=== PATIENT | female | born 1985 | race Caucasian/White ===

== ENCOUNTER → 2017-04-22 | Outpatient (CLI) | payer BC ==
[2017-04-22 09:54] LABS: ESTIMATED AVERAGE GLUCOSE 163 mg/dl; HA1C FLAG Normal (Normal)
== END | disposition home or self-care (01) ==
LOC: C.LAB1850 08:41
PROVIDERS: ATTEND Nurse Practitioner Family
DX: E10.9 Type 1 diabetes mellitus without complications (principal)

== ENCOUNTER → 2017-07-30 | Outpatient (CLI) | payer BC ==
[2017-07-31 06:54] LABS: ESTIMATED AVERAGE GLUCOSE 146 mg/dl; HA1C FLAG Normal (Normal)
== END | disposition home or self-care (01) ==
LOC: C.LAB 17:45
PROVIDERS: ATTEND Nurse Practitioner Family
DX: E10.9 Type 1 diabetes mellitus without complications (principal)

== ENCOUNTER → 2017-10-29 | Outpatient (CLI) | payer OTHER ==
[2017-10-29 13:01] LABS: HEMOGLOBIN A1C 6.2 % (4.5-5.6)
== END | disposition home or self-care (01) ==
LOC: C.LAB1850 10:37
PROVIDERS: ATTEND Nurse Practitioner Family
DX: O24.011 Pre-existing type 1 diabetes mellitus, in pregnancy, first trimester (principal); Z3A.00 Weeks of gestation of pregnancy not specified; E10.9 Type 1 diabetes mellitus without complications

== ENCOUNTER → 2017-11-29 | Outpatient (CLI) | payer OTHER ==
[2017-11-29 12:54] LABS: HEMOGLOBIN A1C 5.6 % (4.5-5.6)
== END | disposition home or self-care (01) ==
LOC: C.LAB1850 11:24
PROVIDERS: ATTEND Nurse Practitioner Family
DX: O24.011 Pre-existing type 1 diabetes mellitus, in pregnancy, first trimester (principal)

== ENCOUNTER → 2017-12-31 | Outpatient (CLI) | payer OTHER ==
[2017-12-31 12:38] LABS: HEMOGLOBIN A1C 5.2 % (4.5-5.6)
== END | disposition home or self-care (01) ==
LOC: C.LAB1850 10:21
PROVIDERS: ATTEND Nurse Practitioner Family
DX: O24.011 Pre-existing type 1 diabetes mellitus, in pregnancy, first trimester (principal); Z3A.00 Weeks of gestation of pregnancy not specified; E10.9 Type 1 diabetes mellitus without complications

== ENCOUNTER → 2018-01-31 | Outpatient (CLI) | payer OTHER ==
[2018-01-31 09:55] LABS: HEMOGLOBIN A1C 5.3 % (4.5-5.6)
== END | disposition home or self-care (01) ==
LOC: C.LAB1850 08:08
PROVIDERS: ATTEND Nurse Practitioner Family
DX: O24.011 Pre-existing type 1 diabetes mellitus, in pregnancy, first trimester (principal); Z3A.00 Weeks of gestation of pregnancy not specified

== ENCOUNTER 2020-07-23 05:04 | Inpatient (IN) ==
[2020-07-23] MEDS ORDERED: OXYTOCIN 30 UNITS/500 ML BAG IV PRN (08:30)
[2020-07-23] MEDS ORDERED: LACTATED RINGER'S 1,000 ML IV PRN (08:30)
[2020-07-23 09:00] LABS: Hemoglobin 9.6 g/dL (12.0-16.0); Mean Corpuscular Hemoglobin 25.5 pg (25-34); Mean Corpuscular Volume 79.6 fL (80-100); Mean Platelet Volume 10.1 fL (7.4-10.4); Platelet Count 368 K/uL (130-400); RDW Coefficient of Variation 15.3 % (11.5-14.5); RDW Standard Deviation 44.2 fL (36.4-46.3); Red Blood Count 3.77 M/uL (4.2-5.4); White Blood Count 10.24 K/uL (4.8-10.8)
[2020-07-23] MEDS ORDERED: DINOPROSTONE 10 MG INSERT PV ONE (09:00)
--- NOTE | 2020-07-23 09:21 | Obstetrical Progress Note ---
Date of Service July 23, 2020 Assessment & Plan Admission and Anticipated Discharge Date Admission Date: July 23, 2020 Subjective Admit Note 34 F P1001 at 39.5 weeks admitted for IOL for diabetes Type 1 with her own insulin pump. Has had good glycemic control with normal A1C. GBS is negative. Covid is negative. FHT Cat 1 with no contractions. Cervix closed/50/- 3/vertex/posterior mod/intact. Cervidil 10 mg placed vaginally. Discussed with patient. Results & Data ([facility]) Vital Signs (Past 12 Hours) Vital Signs Temp Pulse Resp BP 07/23/20 08:02 36.5 C 84 18 132/63 07/23/20 07:52 84 132/63
[2020-07-23] MEDS ORDERED: Nursing to Pharmacy Communication SCH (13:30)
[2020-07-23] MEDS ORDERED: DEXTROSE 50% 50 ML SYRINGE IV PRN (13:45)
[2020-07-23] MEDS ORDERED: INSULIN ASPART 100 UNITS/ML VIAL SC PRN (13:45)
[2020-07-23] MEDS ORDERED: GLUCOSE 40% GEL 15 GM TUBE PO PRN (13:45)
[2020-07-23] MEDS ORDERED: GLUCAGON FOR INJ 1 MG VIAL SQ PRN (13:45)
[2020-07-23] MEDS ORDERED: CARBOHYDRATES FOR HYPOGLYCEMIA PO PRN (13:45)
[2020-07-23] MEDS ORDERED: GLUCOSE 10 TABS/TUBE PO PRN (13:45)
[2020-07-23] MEDS: NovoLOG INSULIN PUMP SCH (18:59)
--- NOTE | 2020-07-23 21:44 | Obstetrical Progress Note ---
Date of Service July 23, 2020 Assessment & Plan Admission and Anticipated Discharge Date Admission Date: July 23, 2020 Physical Exam Genitourinary: Manual OB Exam: + cervical dilation 1 cm, + cervical effacement 50% and + station high OB Exam Monitor Tracing: + external FHT monitor used and + external uterine monitor used Cervidil removed will start PO Cytotec 50 mcg every 4 hours titrated to contractions Results & Data ([facility]) Vital Signs (Past 12 Hours) Vital Signs Temp Pulse Resp BP 07/23/20 19:03 36.7 C 86 18 125/64 07/23/20 15:21 76 126/67 07/23/20 15:20 36.6 C 18 07/23/20 11:19 36.7 C 80 18 126/67
[2020-07-24] MEDS: miSOPROStoL 50 MCG TAB PO SCH ×2 (00:01→06:20)
[2020-07-24] MEDS ORDERED: ePHEDrine sulfate 50 MG/ML AMP ONE (19:48)
[2020-07-24] MEDS ORDERED: fentaNYL citrate 100 MCG/2 ML VIAL ONE (19:49)
[2020-07-24] MEDS ORDERED: BUPIVACAINE 0.25% 30 ML VIAL ONE (19:49)
[2020-07-24] MEDS ORDERED: fentaNYL 2MCG/ML ROPIVACAINE 1.25MG/ML 100 ML BAG EPI ONE (19:50)
[2020-07-24] MEDS: NovoLOG INSULIN PUMP SCH (20:00)
--- NOTE | 2020-07-24 20:04 | Anesthesiology Consultation ---
Date of Service July 24, 2020 Assessment & Plan Chart Review Chart Review: Acceptable Risk for Surgery, Patient NOT seen in Pre Admission Testing and Acceptable Risk for Labor Epidural Consults Requested none ASA ASA3 Proposed Anesthesia Anesthesia Type: Labor Epidural and CSE History Height/Weight Height: 5 ft 5 in Weight: 91.626 kg Allergies Allergy/AdvReac Type Severity Reaction Status Date / Time No Known Drug Allergies Allergy None Verified 07/23/20 07:58 Medications Home Medications Medication Instructions Recorded Confirmed Last Taken blood sugar diagnostic #10 ea 05/12/19 04/01/20 Unknown blood-glucose meter, wireless #1 ea 05/12/19 04/01/20 Unknown blood-glucose meter,continuous #1 ea 05/12/19 04/01/20 Unknown blood-glucose transmitter #1 ea 05/12/19 04/01/20 Unknown cholecalciferol (vitamin D3) 50 2,000 units PO DAILY tab 05/12/19 07/23/20 07/22/20 mcg (2,000 unit) tablet cyanocobalamin (vitamin B-12) 500 500 mcg PO DAILY tab 05/12/19 07/23/20 07/22/20 mcg tablet levothyroxine 75 mcg tablet 75 mcg PO .COMPLEX #90 tab 11/17/19 07/23/20 07/23/20 glucagon (human recombinant) 1 mg 1 mg IM .COMPLEX PRN #1 ea 12/05/19 07/21/20 07/21/20 solution for injection Dexcom G6 Sensor #9 ea NS 02/28/20 04/01/20 Unknown acetone (urine) test #25 ea 04/01/20 04/01/20 Unknown insulin glargine 100 unit/mL (3 160 units SQ DAILY 90 Days #144 ml 04/08/20 07/23/20 07/23/20 mL) subcutaneous pen Novolog U-100 Insulin aspart 100 160 units SQ DAILY #150 ml NS 04/29/20 07/21/20 07/23/20 08:00 unit/mL subcutaneous solution Dexcom G6 Transmitter #1 ea NS 06/04/20 Unknown prenat.vits,cherelle,jqz-ddsh-sdias 1 tab PO DAILY 07/23/20 07/23/20 07/23/20 [ Vitamin] Active Medications Generic Name Dose Route Start Last Admin Trade Name Freq PRN Reason Stop Dose Admin Insulin Aspart 1 ea 07/23/20 16:30 07/23/20 18:59 Novolog Insulin Pump N/A 08/22/20 16:29 Not Given ACHS DAY Protocol Misoprostol 50 mcg 07/24/20 00:00 07/24/20 06:20 Misoprostol 50 Mcg Tab PO 08/23/20 00:00 50 mcg Q4 DAY Administration Past Medical History Medical History Asthma Hasn't used an inhaler in about 5 years. Foot pain H/O Dharmesh thyroiditis Hypothyroid Microalbuminuria Non-proliferative diabetic retinopathy, mild, both eyes Pneumonia Type I diabetes mellitus Diagnosed at age 3. Exercise / Class Metabolic Activity II 4-5 Yardwork/Stairs/Walk up hill Past Family History Family History Father Myelofibrosis Mother Heart valve insufficiency Past Surgical History Surgical History [place] teeth removed Past Anesthesia History No Hx of Anesthesia Complications and No Family Hx of Anesthesia Complications History of PONV No Hx of PONV and No Hx of Motion Sickness Social History Smoking Status: Never smoker Hx Alcohol Use: No Hx Substance Use: No Physical Exam Vital Signs Last Vital Signs Temp 36.3 C L 07/24/20 19:36 Pulse 72 07/24/20 19:33 Resp 22 07/24/20 18:08 BP 135/65 07/24/20 19:33 Testing Laboratory Results 07/23/20 08:40
[2020-07-24] MEDS: ePHEDrine sulfate 50 MG/ML AMP IV PRN ×2 (20:30→20:40)
[2020-07-24] MEDS ORDERED: PROMETHAZINE HCL 25 MG in SODIUM CHLORIDE 0.9% 50 ML IV PRN (20:47)
[2020-07-24] MEDS ORDERED: ONDANSETRON INJ 2 MG/ML 2 ML VIAL IV PRN (20:47)
[2020-07-24] MEDS ORDERED: NALOXONE HCL 0.4 MG/1 ML VIAL/CARP IV PRN (20:47)
[2020-07-24] MEDS ORDERED: NALOXONE HCL 1 MG in SODIUM CHLORIDE 0.9% 1000ML 1,000 ML IV PRN (20:47)
[2020-07-24] MEDS ORDERED: diphenhydrAMINE 50 MG/ML VIAL IV PRN (20:47)
[2020-07-24] MEDS ORDERED: fentaNYL 2MCG/ML ROPIVACAINE 1.25MG/ML 100 ML BAG EPI PRN (20:47)
[2020-07-24] MEDS ORDERED: OXYTOCIN 30 UNITS/500 ML BAG IV PRN ×2 (20:57→23:57)
[2020-07-24] MEDS ORDERED: DIPHTHERIA/TETANUS/PERTUSSIS 0.5 ML SYR/VIAL IM ONE (23:57)
[2020-07-24] MEDS ORDERED: SUPERCREAM 0.870% 15 GM JAR EXT PRN (23:57)
[2020-07-24] MEDS ORDERED: bisacodyL 10 MG SUPP PR PRN (23:57)
[2020-07-24] MEDS ORDERED: ACETAMINOPHEN W/CODEINE #3 1 TAB PO PRN (23:57)
[2020-07-24] MEDS ORDERED: HYDROCORTISONE ACETATE 25 MG SUPP PR PRN (23:57)
[2020-07-24] MEDS ORDERED: ACETAMINOPHEN 325 MG TAB PO PRN (23:57)
[2020-07-24] MEDS ORDERED: BENZOCAINE 20% AER SPR 82.5 GM CAN EXT PRN (23:57)
[2020-07-24] MEDS ORDERED: oxyCODONE/ACETAMINOPHEN 5mg/325mg TAB PO PRN (23:57)
[2020-07-25] MEDS: IBUPROFEN 600 MG TAB PO PRN ×4 (03:52→18:11)
[2020-07-25 06:17] LABS: Hemoglobin 8.3 g/dL (12.0-16.0); Mean Corpuscular Hemoglobin 26.3 pg (25-34); Mean Corpuscular Hgb Conc 33.2 g/dL (32-36); Mean Corpuscular Volume 79.4 fL (80-100); Mean Platelet Volume 9.9 fL (7.4-10.4); Platelet Count 320 K/uL (130-400); RDW Coefficient of Variation 15.5 % (11.5-14.5); RDW Standard Deviation 44.8 fL (36.4-46.3); Red Blood Count 3.15 M/uL (4.2-5.4)
[2020-07-25] MEDS: LEVOTHYROXINE SODIUM 75 MCG TABLET PO SCH (06:19)
--- NOTE | 2020-07-25 06:36 | Operative Report (OR) ---
DATE OF OPERATION: 07/25/2020 She is a 2, para 2, blood type is O positive, group B strep negative. Due date is 07/25/2020. Insulin-dependent diabetic, well controlled, brought in for induction, given 2 doses of p.o. Cytotec. Then she had her membranes ruptured, augmented with IV Pitocin. Had epidural for anesthesia. Pushed out a live infant via direct occiput anterior position over an intact perineum. Infant was suctioned through the mouth and the nose. Body of the was delivered without difficulty. Cord was allowed to clamp for a minute, was clamped and cut by the father. Cord blood was taken. There was a laceration of the right labia minora by the clitoral area. There was a lot of bleeding. We infiltrated this area with local with epinephrine. Then I repaired it with a mattress suture of 3-0 chromic. I repaired the labial skin edges with a mattress suture of 3-0 chromic on the ridge and then one on the outside. Then I did a deep suture to approximate the deep tissues and control the bleeding and 3 interrupted mattress sutures to approximate the vaginal skin area on the inside. Good approximation was done, hemostasis was good. Turned attention to first-degree laceration at about 5 o'clock. The vaginal mucosa was approximated with a heavy Vicryl out and to beyond the hymenal ring. Deep suture was used to approximate the bulbocavernosus muscle. A second suture was used to approximate the perineal body. Running subcuticular suture was used to approximate the perineal skin edges. Following this, hemostasis was good. Sponges were removed and counted. Estimated blood loss was 200 mL and placenta was held. I attest to the content of the Intraoperative Record and any orders documented therein. Any exception s are noted below.
[2020-07-25] MEDS: PRENATAL VITAMIN 1 TAB PO SCH (08:03)
[2020-07-25] MEDS: DOCUSATE SODIUM 100 MG CAP PO SCH ×2 (08:03→19:54)
--- NOTE | 2020-07-25 09:39 | Anesthesia Procedure Note ---
Date of Service July 25, 2020 Anesthesia Post Epidural Note Vital Signs Vital Signs: Temp Pulse Resp BP Pulse Ox 36.8 C 87 16 123/66 98 07/25/20 07:08 07/25/20 07:08 07/25/20 07:08 07/25/20 07:08 07/25/20 03:59 Pain Intensity Abdomen: Pain Intensity: 3
--- NOTE | 2020-07-25 09:48 | Obstetrical Progress Note ---
Date of Service July 25, 2020 Assessment & Plan (1) Normal course: PPD #1 pt doing well s/p DM on Insulin Pump Results & Data ([facility]) Vital Signs (Past 12 Hours) Vital Signs Temp Pulse Pulse Resp BP BP Pulse Ox 07/25/20 07:08 36.8 C 87 16 123/66 07/25/20 03:59 36.9 C 97 H 18 131/69 98 07/25/20 02:23 36.7 C 111 H 18 108/55 L 07/25/20 02:12 36.6 C 18 98 07/25/20 01:29 106 H 97 07/25/20 01:28 18 07/25/20 01:27 105 H 117/57 L 07/25/20 01:25 106 H 115/59 L 07/25/20 01:24 108 H 97 07/25/20 01:19 110 H 97 07/25/20 01:16 36.6 C 18 07/25/20 01:15 18 98 07/25/20 01:14 106 H 97 07/25/20 01:10 107 H 114/55 L 07/25/20 01:09 108 H 98 07/25/20 01:07 110 H 18 07/25/20 01:04 113 H 98 07/25/20 00:59 110 H 98 07/25/20 00:55 107 H 114/55 L 07/25/20 00:54 107 H 98 07/25/20 00:49 102 H 99 07/25/20 00:45 18 07/25/20 00:44 36.6 C 104 H 98 07/25/20 00:43 102 H 18 98 07/25/20 00:40 102 H 114/68 07/25/20 00:30 36.6 C 18 07/25/20 00:25 109 H 107/57 L 07/25/20 00:15 18 98 07/25/20 00:11 109 H 98 07/25/20 00:10 101 H 124/60 07/25/20 00:07 105 H 94 07/25/20 00:06 103 H 98 07/25/20 00:01 104 H 98 07/25/20 00:00 36.6 C 18 07/24/20 23:56 110 H 98 07/24/20 23:55 107 H 121/56 L 07/24/20 23:51 108 H 99 07/24/20 23:50 110 H 94 07/24/20 23:46 110 H 98 07/24/20 23:45 18 98 07/24/20 23:41 115 H 99 07/24/20 23:40 116 H 132/69 07/24/20 23:36 115 H 98 07/24/20 23:31 113 H 99 07/24/20 23:30 110 H 135/68 07/24/20 23:26 117 H 100 07/24/20 23:25 114 H 131/67 07/24/20 23:21 115 H 100 07/24/20 23:16 108 H 100 07/24/20 23:11 111 H 100 07/24/20 23:10 102 H 136/60 07/24/20 23:06 91 H 100 07/24/20 23:01 100 H 100 07/24/20 22:56 98 H 97 07/24/20 22:55 99 H 122/55 L 07/24/20 22:51 97 H 97 07/24/20 22:50 102 H 94 07/24/20 22:46 98 H 97 07/24/20 22:41 99 H 121/57 L 98 07/24/20 22:36 100 H 99 07/24/20 22:31 104 H 99 07/24/20 22:28 36.6 C 18 07/24/20 22:27 100 H 130/59 L 07/24/20 22:26 100 H 99 07/24/20 22:21 103 H 98 07/24/20 22:16 102 H 98 07/24/20 22:11 103 H 126/59 L 99 07/24/20 22:06 95 H 98 07/24/20 22:01 98 H 99 20 21:57 93 H 128/60 20 21:56 95 H 100 07/24/20 21:51 81 100
[2020-07-25] MEDS ORDERED: bisacodyL 5 MG TABEC PO SCH (20:00)
[2020-07-26 06:56] LABS: Hematocrit (blood only) 25.7 % (37-47); Hemoglobin 8.2 g/dL (12.0-16.0)
[2020-07-26] MEDS: LEVOTHYROXINE SODIUM 75 MCG TABLET PO SCH (07:39)
[2020-07-26] MEDS: PRENATAL VITAMIN 1 TAB PO SCH (07:39)
[2020-07-26] MEDS: DOCUSATE SODIUM 100 MG CAP PO SCH (07:39)
[2020-07-26] MEDS: IBUPROFEN 600 MG TAB PO PRN (09:02)
--- NOTE | 2020-07-26 10:11 | Obstetrical Progress Note ---
Date of Service July 26, 2020 Assessment & Plan Admission and Anticipated Discharge Date Admission Date: July 23, 2020 Subjective PPD#2 doing well passing gas tolerating diet ambulating well Physical Exam Constitutional: WD/WN, vitals as above comfortable abdomen soft fundus firm no edema neg Roberta's for d/c Results & Data ([facility]) Vital Signs (Past 12 Hours) Vital Signs Temp Pulse Pulse Resp BP BP 07/26/20 08:40 36.8 C 68 20 113/61 07/26/20 00:05 36.6 C 83 18 116/61 Laboratory Results Laboratory Results - last 72 hr 07/23/20 07/23/20 07/25/20 20:20 20:20 05:43 WBC 19.10 H RBC 3.15 L Hgb 8.3 L Hct 25.0 L MCV 79.4 L MCH 26.3 MCHC 33.2 RDW Std Deviation 44.8 RDW Coeff of Kavin 15.5 H Plt Count 320 MPV 9.9 Cord ABG pH Cord ABG pCO2 Cord ABG pO2 Cord ABG HCO3 Cord ABG Base Excess Cord ABG O2 Sat Cord VBG pH Cord VBG pCO2 Cord VBG pO2 Cord VBG HCO3 Cord VBG Base Excess Cord VBG O2 Sat Barometric Pressure Blood Gas Comments 07/26/20 06:42 WBC RBC Hgb 8.2 L Hct 25.7 L MCV MCH MCHC RDW Std Deviation RDW Coeff of Kavin Plt Count MPV Cord ABG pH Cord ABG pCO2 Cord ABG pO2 Cord ABG HCO3 Cord ABG Base Excess Cord ABG O2 Sat Cord VBG pH Cord VBG pCO2 Cord VBG pO2 Cord VBG HCO3 Cord VBG Base Excess Cord VBG O2 Sat Barometric Pressure Blood Gas Comments
--- NOTE | 2020-08-06 12:55 | Coding Query ---
CODING QUERY To promote full compliance with coding requirements relating to patient care, provider participation is requested in all cases of telephone clerk uncertainty. Please assist us with the question(s) below: Coding Question(s): The Operative Report shows date of operation as 07/25/20, however the EMR shows the date of 07/24/20. Please clarify below, regarding the Date of Operation. (x ) 07/24/20 ( ) 07/25/20 ( ) Other Date: Please Specify Physician's Response(s): Thank you Mercy Leal Principal Diagnosis: "that condition established after study, to be chiefly responsible for occasioning the admission of the patient to the hospital for care." Co-Existing Principal Diagnosis: "when two or more diagnoses equally meet the criteria for principal diagnosis as determined by the circumstances of admission, diagnostic work up, and/or therapy provided, and the Alphabetic Index, Tabular List, or another coding guideline does not provide sequencing direction, any one of the diagnoses may be sequenced first." "When the physician has documented what appears to be a current diagnosis in the body of the record, but has not included the diagnosis in the final diagnostic statement, the physician should be asked whether the diagnosis should be added." ([facility] 2 QTR90. p3-4) HINA
== END 2020-07-26 12:20 | disposition home or self-care (01) | DRG 807 ==
LOC: 4S1 07:40 → 4S2 07-25 03:15